=== PATIENT | male | born 1940 | race Caucasian/White ===

== ENCOUNTER 2019-02-27 12:44 | Outpatient (CLI) | payer OTHER ==
[~2019-02-27 12:44] MED LIST: ACETA-GESIC 321 EACH PO; AVAPRO75 MG; CIPRO750 MG PO; CLONAZEPAM1 MG PO; DOCUSATE SODIU100 MG PO; METHYLPRED4 MG/DOSE- PO; MIRAPEX0.5 MG; NEURONTIN PO; TOPROL XL50 MG
== END 2019-02-27 13:00 | disposition home or self-care (01) ==
LOC: RAD 12:44
DX: T84.84XA Pain due to internal orthopedic prosthetic devices, implants and grafts, initial encounter (principal)

== ENCOUNTER 2021-08-21 08:53 | Emergency (ER) | payer OTHER ==
[~2021-08-21] VITALS: Ht 167.6 cm; Wt 74.8 kg
[2021-08-21] MEDS ORDERED: ULTRAM50 MG (09:14)
== END 2021-08-21 13:53 | disposition home or self-care (01) ==
LOC: ER 08:53
DX: M51.36 Other intervertebral disc degeneration, lumbar region (principal); M54.9 Dorsalgia, unspecified; I10 Essential (primary) hypertension